=== PATIENT | female | born 1990 | race Caucasian/White ===

== ENCOUNTER 2016-08-08 12:18 | Emergency (ER) | payer OTHER | END 2016-08-08 16:31 | disposition home or self-care (01) | LOC: ER 12:18 | DX: O20.0 Threatened abortion (principal); F17.210 Nicotine dependence, cigarettes, uncomplicated; Z79.899 Other long term (current) drug therapy; Z3A.08 8 weeks gestation of pregnancy | CPT/HCPCS: 36415 ==